=== PATIENT | male | born 1950 | race Two or more races ===

== ENCOUNTER → 2024-09-24 | Outpatient (CLI) | payer OTHER ==
[2024-09-26 09:06] LABS: Prostate Specific Antigen 9.6 ng/mL (0.0-4.0)
[2024-09-27 06:05] LABS: PSA Free 2.41 ng/mL
== END | disposition home or self-care (01) ==
LOC: LAB 15:43
PROVIDERS: ATTEND Internal Medicine
DX: N40.0 Benign prostatic hyperplasia without lower urinary tract symptoms (principal)
CPT/HCPCS: 84153; 84154

== ENCOUNTER → 2025-01-27 | Outpatient (CLI) | payer OTHER ==
[2025-01-27 13:04] LABS: Anion Gap 8 (5-15); Carbon Dioxide 29 mmol/L (20-31); Chloride 103 mmol/L (98-107); Potassium 4.4 mmol/L (3.5-5.1); Sodium 140 mmol/L (136-145)
[2025-01-27 13:05] LABS: Calcium 9.9 mg/dL (8.7-10.4)
[2025-01-27 13:10] LABS: BUN/Creatinine Ratio 15.7 (10.0-20.0); Blood Urea Nitrogen 16 mg/dL (9-23); Glucose 121 mg/dL (74-106)
== END | disposition home or self-care (01) ==
LOC: LAB 12:03
PROVIDERS: ATTEND Internal Medicine
DX: I10 Essential (primary) hypertension (principal)
CPT/HCPCS: 36415; 80048